=== PATIENT | male | born 1990 | race Caucasian/White ===

== ENCOUNTER 2021-05-29 09:43 | Outpatient (REF) | payer OTHER, MEDICARE, MEDICAID, SELFPAY ==
[2021-05-29 11:08] LABS: MANUAL DIFF FLAG NO
[2021-05-29 11:13] LABS: Basophils Percent Auto 0.4 % (0-2); Eosinophils Absolute Auto 0.1 X10*3/uL (0.0-0.4); Eosinophils Percent Auto 1.8 % (0-4); Hematocrit 42.5 % (42-52); Hemoglobin 14.7 g/dl (14.0-18.0); Imm Gran Abs Auto 0.02 X10*3/uL (0.00-0.03); Imm Gran Pct Auto 0.4 % (0.0-0.4); Lymphocytes Absolute Auto 1.2 X10*3/uL (1.2-4.9); Lymphocytes Percent Auto 27.2 % (20-40); Mean Corpuscular HGB Conc 34.6 g/dl (31.0-36.0); Mean Corpuscular Hemoglobin 30.4 pg (27.0-33.0); Mean Corpuscular Volume 87.8 fL (80-98); Mean Platelet Volume 12.2 fL (9.4-12.4); Monocytes Absolute Auto 0.4 X10*3/uL (0.1-1.2); Monocytes Percent Auto 8.7 % (2-11); Neutrophils Absolute Auto 2.8 X10*3/uL (2.0-8.3); Neutrophils Percent Auto 61.5 % (45-73); Platelet Count 138 X10*3/uL (160-400); Red Blood Count 4.84 X10*6/uL (4.60-5.80); Red Cell Distribution Width 12.9 % (11.0-16.0); White Blood Count 4.5 X10*3/uL (4.8-10.8)
[2021-05-29 12:12] LABS: Erythrocyte Sedimentation Rate 7 MM/HR (0-15)
[2021-06-05 12:36] LABS: Asperg fumigatus Precip Abs NEGATIVE (NEGATIVE); Micropoly faeni Abs NEGATIVE (NEGATIVE); Pigeon serum Abs NEGATIVE (NEGATIVE); Saccharo pora viridis Abs NEGATIVE (NEGATIVE); Thermo candidus Abs NEGATIVE (NEGATIVE); Thermoa vulgaris #1 NEGATIVE (NEGATIVE)
== END 2021-05-29 09:44 | disposition home or self-care (01) ==
LOC: HO.LAB 09:43
PROVIDERS: PCP Internal Medicine; Visit Provider Hospitalist
DX: J39.8 Other specified diseases of upper respiratory tract (principal); R05 Cough; R06.00 Dyspnea, unspecified; J45.909 Unspecified asthma, uncomplicated; Q24.9 Congenital malformation of heart, unspecified; R91.8 Other nonspecific abnormal finding of lung field
CPT/HCPCS: 36415; 82785; 85025; 85652; 86003; 86331; 86606; 86609

== ENCOUNTER → 2021-07-03 13:24 | Outpatient (BNVA) | payer OTHER, MEDICARE, MEDICAID, SELFPAY | PROVIDERS: PCP Internal Medicine; Visit Provider Hospitalist ==

== ENCOUNTER → 2021-11-06 14:07 | Outpatient (BNVA) | payer OTHER, MEDICARE, MEDICAID, SELFPAY | PROVIDERS: PCP Internal Medicine; Visit Provider Hospitalist ==

== ENCOUNTER 2022-01-29 08:00 | Outpatient (REF) | payer OTHER, MEDICARE, MEDICAID, SELFPAY ==
--- NOTE | ~2022-01-29 | FL_ITS ---
EXAMINATION: FL BARIUM SWALLOW CLINICAL INFORMATION: Gastroesophageal reflux disease without esophagitis. COMPARISON: None TECHNIQUE: Barium swallow examination is performed using fluoroscopic evaluation in addition to multiple fluoroscopic spot views. The patient is imaged both upright and prone and using both thick and thin sulfate along with effervescent granules. Fluoroscopy time: 1.2 minutes DAP: 9.922 Gycm2 Images: 81 FINDINGS: There is normal oral bolus control and transfer. Normal posterior tilt of the epiglottis with elevation of the hyoid. No cricopharyngeal abnormality. The esophagus was normal in course, caliber, and contour. There was normal distensibility with no fixed segment of narrowing. No focal mucosal abnormality was identified. Mild esophageal dysmotility is observed, with retention of contrast in the esophagus with the patient in the prone positioning. Contrast passed freely across the gastroesophageal junction into the stomach. There is a small sliding hiatal hernia. This extends approximately the height of 2 vertebral bodies. Moderate gastroesophageal reflux was observed. FL/FL barium swallow IMPRESSION: Moderate gastroesophageal reflux associated with a small sliding hiatal hernia. There is mild esophageal dysmotility.
== END 2022-01-29 08:01 | disposition home or self-care (01) ==
LOC: HO.XRAY 08:00
PROVIDERS: PCP Internal Medicine; Visit Provider Hospitalist
DX: K21.9 Gastro-esophageal reflux disease without esophagitis (principal)
CPT/HCPCS: 74220

== ENCOUNTER → 2022-02-18 14:03 | Outpatient (BNVA) | payer OTHER, MEDICARE, MEDICAID, SELFPAY | PROVIDERS: PCP Internal Medicine; Visit Provider Hospitalist | DX: R05.9 Cough, unspecified (principal) ==

== ENCOUNTER → 2023-03-04 12:52 | Outpatient (BNVA) | payer OTHER, MEDICARE, MEDICAID, SELFPAY | PROVIDERS: PCP Internal Medicine; Visit Provider Hospitalist | DX: J45.909 Unspecified asthma, uncomplicated (principal) ==

== ENCOUNTER 2023-11-11 15:28 | Outpatient (AMB) | payer OTHER, MEDICARE, MEDICAID, SELFPAY ==
[2023-11-11 15:30] VITALS: BP 109/64; PULSE 100; O2SAT 97; BMI 37.7
--- NOTE | 2023-11-11 15:30 | A.OFFVIS_ITS ---
Intake Vital Signs 11/11/23 15:30 Height 5 ft 11 in Weight 270 lb 1.06 oz BMI 37.7 BP 109/64 Blood Pressure Location Rt brachial Position Sitting Pulse 100 Pulse Source Doppler Pulse Oximetry (%) 97 Oxygen Delivery Method Room Air Intake Visit Reasons: Cough Intake Note: Patient is here for a routine follow up, patient stated he had an upper respir atory infection by the end of September and still has cough Allergies Sulfa (Sulfonamide Antibiotics) Allergy (Intermediate, Verified 03/04/23 13:09) Rash HPI HPI Comments History of Present Illness Details the patient is a 33-year-old gentleman with a known history of congenital heart disease status post surgery for tetralogy of fallot in addition to stent placement does who was in his usual state health until 2 months ago when he started developing worsening cough shortness of breath. patient is evaluated and treated without any significant improvement after antibiotics. Had a chest x-ray demonstrating no acute disease. In addition to that underwent pulmonary function studies which demonstrated a moderate obstruction. he was given a short-acting beta agonist. The patient however continues to have symptoms including a croupy cough which is nonproductive in nature. He did cough in the office in concerned about the of tracheomalacia the likely was precipitated by the respiratory illness. At this point with his ongoing symptoms and not responding to therapy as well as a nondiagnostic chest x-ray and very abnormal pulmonary function studies the patient needs to undergo a CT scan of the chest. I will request a CT scan of the chest with forced expiratory cuts to further address the tracheomalacia. 07/03/2021 the patient is here for a pulmonary follow-up visit. Overall the patient has been doing better on the current respiratory regimen. His cough is less congested. But, still present. We did review his blood work including allergy testing. It appears that his ragweed allergies. 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 in addition to that did have some areas pneumonitis in the left upper lung zone. The patient does have a follow-up in [place] at [facility] in the coming weeks. I did request that they take the imag es from the CT scan so that can be further addressed air. It appears that although the obstruction is significant he is aerating his lung well and therefore likely a dynamic obstruction. This obstruction is likely explaining the significant obstructive ventilatory defect that we saw on his pulmonary function studies. 11/06/2021 The patient has a telehealth visit. Overall the patient has been doing well. Breathing is overall better. Still has a cough, intermittent, non productive. Mild to moderate. He did go to [place] and reviewed his CT chest with [place] regarding the near complete obstruction of the JAVI bronchus which is due to his vascular anomaly. The family apperantly was reassured. In the mean time he did get the flutter valve. I do hope that CPT with help him clear secretions better and improve his cough. If his symptoms continue or worsen we can always consider visualizing the area with bronchoscopy. 02/18/2022 the patient is here for a pulmonary follow-up visit. Since we last spoke the patient has been doing relatively well. He did quit his job at [employer] and he got any job at a different refills to her. This new job will have less exposure to dust and climate change that usually activates is asthma. Overall he is doing well from the asthma standpoint although he has not been using his Breo daily. Part he does forget. However, on examination he does have some wheezing to therefore a did reassure that he should be using his maintenance inhaler daily. In addition to that he will benefit from adding singular. The patient did have a barium swallow because of the dysphagia symptoms in the has a small hiatal hernia which appears to be sliding and also moderate reflux. We did take time to talk about the reflux diet and modifications from that standpoint. At this point will hold off on any antacid medication. I am hopeful that he can start making some dietary changes and routine changes. the patient will follow up with his primary care doctor believe in the fall in the can decide if he should have further evaluations for the hiatal hernia. 09/13/2022 the patient is here for a pulmonary follow-up visit. Since we last spoke he ran out of his Breo and he has not been using it. He did move to a different apartment then change pharmacy so therefore he will was not getting it regularly. Ultimately in the fall he did get sick with COVID-19. He did see his primary care doctor and he was prescribed back Slo-bid. Afterwards he continue have a cough and he was treated for that. Now finally the cough is subsiding after several months. the patient did feel better on the Breo. We did talk about other alternatives to Breo. However, he feels pretty strongly he wants to stay on the same medication. Therefore I will go ahead and send the medication to the pharmacy. Patient has also using singular at nighttime. He also has has an Acapella valve that he should be using. We again went to the instructions on how to use it. 03/04/2023 the patient is here for a pulmonary follow-up visit. Overall the patient is doing well. He is using the Breo as prescribed. Has not had to use his rescue inhaler. He still has coughing events specially when he lays flat. Usually nonproductive. typically results on his own. The patient understands that he needs to monitor closely with reflux diet. He does have a small hiatal hernia and some reflux disease based on barium swallow. He continues on his PPI. He will try to maintain reflux diet. He may benefit from GI evaluation in the future. In the meantime he is doing well from a respiratory status. 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 The patient does follow up in [place] for that. There were not concerned with the CT scan findings. Will go ahead and follow-up in a year's time with pulmonary function studies. Otherwise if the patient has any worsening symptoms he should Call for an earlier evaluation. 11/11/2023 the patient is here for a pulmonary follow-up visit. He has been having increasing cough specially after having a acute illness. The patient did require a short course of antibiotics. Overall he did get better but still feels shortness of breath and just a persistent cough. Moderate severity. In addition to that has been complaining increasing dyspepsia and heartburn. The patient does have a hiatal hernia. On examination he does have some expiratory wheezing. Although minimal mainly on forced exhalation. Reasonable to escalate his respiratory therapy. Will switch him over to a HFA formulation will provide him with a spacer in order for him to better administer the medication with better distribution and hopefully improving his symptoms. In addition to that we talked that the underlying hiatal hernia reflux disease could be potentially affecting his asthma. He is already trying to follow a reflux diet and we had spoken about sleeping with the head of bed elevated previously. Will have him get a barium swallow. He may need to have further GI evaluation. [facility] Medical History (Updated 11/13/23 @ 22:39 by Kaiser Prakash MD) Hiatal hernia Airway obstruction, anatomic Congenital heart disease Cough Dyspnea Asthma Social History Patient Tobacco Use Status: Never used Tobacco Review of Systems Const Denies night sweats ENT Denies change in voice, Denies lip swelling, Denies mouth pain, Reports nasal congestion, Reports nasal discharge and Denies tongue swelling Card Denies chest pain and Denies dyspnea Resp Reports cough and Denies dyspnea GI Denies abdominal pain, Reports dyspepsia and Reports heartburn Musc Denies no additional complaints Neuro Denies Neuro-related abnormal movements Psych Denies no additional complaints Qamar/Lymph Denies easy bleeding and Denies lymphadenopathy Aller/Immun Denies lip swelling and Denies tongue swelling Physical Exam Vital Signs: Last Vital Signs Pulse 100 11/11/23 15:30 BP 109/64 11/11/23 15:30 Pulse Ox 97 11/11/23 15:30 Oxygen Delivery Method Room Air 11/11/23 15:30 BMI result Body Mass Index 37.7 Const General: alert Eyes Pupils: Equal, round and reactive pupils present Neck Neck: Yes normal visual inspection, Yes full ROM and Yes no lymphadenopathy Chest Chest palpation & inspection: normal inspection of the chest Resp Effort & Inspection: normal respiratory effort and prolonged expiratory phase Auscultation: wheezes and diminished lung sounds Cardio Rate: regular rate Rhythm: regular rhythm Heart sounds: S1 normal heart sound present and S2 normal heart sound present GI Palpation (GI): Soft to palpation and nontender Auscultation: normal bowel sounds General: Yes no CVA tenderness Back/Spine/Pelvis Back: no CVA tenderness Skin General skin exam: rashes and/or lesions noted Neuro Cranial nerves: Yes Equal, round and reactive pupils present Assessment & Plan Assessment & Plan (1) Cough: Code(s): R05 - Cough Qualifiers: Cough type: chronic Qualified Code(s): R05.3 - Chronic cough (2) Dyspnea: Code(s): R06.00 - Dyspnea, unspecified Qualifiers: Dyspnea type: dyspnea on exertion Qualified Code(s): R06.09 - Other forms of dyspnea (3) Asthma: Code(s): J45.909 - Unspecified asthma, uncomplicated Qualifiers: Asthma complication type: uncomplicated Asthma persistence: persistent Asthma severity: moderate Qualified Code(s): J45.40 - Moderate persistent asthma, uncomplicated (4) Congenital heart disease: Code(s): Q24.9 - Congenital malformation of heart, unspecified (5) Airway obstruction, anatomic: Code(s): J98.8 - Other specified respiratory disorders Plan: it appears that the right mainstem bronchus is being extrinsically cuff struck did by the pulmonary trunk in addition to the aorta (6) Hiatal hernia: Code(s): K44.9 - Diaphragmatic hernia without obstruction or gangrene Plan stop Breo 200 daily start Breztri MARK as needed reflux diet Sleep elevated barium swallow CPT with flutter valve F/U 2-3 months Orders: Orders FL barium swallow 11/11/23 K21.9 - Gastro-esophageal reflux disease without esophagitis Medications: New [id number] 160-9-4.8 mcg/actuation (Breztri Aerosphere) 2 inhalations inhalation BID 30 days 10.7 grams 11RF Refilled albuterol sulfate 90 mcg/actuation 2 inhalations inhalation Q6H 30 days PRN 8.5 grams 11RF shortness of breath or wheezing Coding Level of Care Code Est Pt Level 4 (38633) Diagnoses Chronic cough R05.3 Cough type: chronic Dyspnea on exertion R06.09 Dyspnea type: dyspnea on exertion Moderate persistent asthma without complication J45.40 Asthma complication type: uncomplicated Asthma persistence: persistent Asthma severity: moderate Congenital heart disease Q24.9 Airway obstruction, anatomic J98.8 Hiatal hernia K44.9 Time Spent (min) 19
== END 2023-11-11 16:03 | disposition home or self-care (01) ==
PROVIDERS: PCP Internal Medicine; Visit Provider Hospitalist
DX: R05.3 Chronic cough (principal); R06.09 Other forms of dyspnea; J45.40 Moderate persistent asthma, uncomplicated; Q24.9 Congenital malformation of heart, unspecified; J98.8 Other specified respiratory disorders; K44.9 Diaphragmatic hernia without obstruction or gangrene
CPT/HCPCS: 99214

== ENCOUNTER → 2023-11-11 15:28 | Outpatient (BNVA) | payer OTHER, MEDICARE, MEDICAID, SELFPAY | PROVIDERS: PCP Internal Medicine; Visit Provider Hospitalist ==

== ENCOUNTER 2024-02-16 08:44 | Outpatient (REF) | payer OTHER, MEDICARE, MEDICAID, SELFPAY ==
--- NOTE | ~2024-02-16 | FL_ITS ---
EXAMINATION: XR FLUOROSCOPY UPPER GI WITH AIR CLINICAL INFORMATION: Reflux. Asthma COMPARISON: Barium swallow 01/29/2022 TECHNIQUE: Fluoroscopic air contrast upper GI examination was performed utilizing standard techniques with thin and thick barium and effervescent granules. Numerous spot images were obtained. FINDINGS: Lateral cine images of the oropharynx and hypopharynx demonstrate normal swallow mechanism with normal epiglottic inversion and soft palate elevation. No tracheal penetration, glottic or subglottic aspiration identified. No nasopharyngeal reflux present. Hypopharyngeal structures appear normal without evidence of mass or diverticulum. There was no significant cricopharyngeal achalasia. Dual and single contrast images of the esophagus demonstrate normal caliber, contour, and mucosal pattern. No evidence of mass, or ulcerations identified. There is a Schatzki's ring present which appears to be open and not significantly obstructing or narrowing the GE junction. Esophageal peristalsis was mildly disorganized. A small to moderate size type I hiatal hernia is present. No significant gastroesophageal reflux was seen during the course of the examination and on reflux views. Dual contrast and single contrast images of the stomach demonstrated normal contour and mucosal pattern without evidence of mass, ulceration, or other abnormality. Contrast freely passed into the gastric antrum and duodenal bulb without delay. Single and air-contrast images of the duodenal bulb demonstrate no abnormality. The duodenal sweep has a normal appearance, course, and mucosal fold appearance. No malrotation. The imaged proximal jejunum has a normal fold pattern and caliber. There are small sternal wires present from remote sternotomy. FLUOROSCOPY TIME: 4 minutes 24 seconds Number of Spot Images: 11 Number of Cine: 16 DOSE AREA PRODUCT: 3602 uGy-m2 (microgray-meter squared) FL/FL barium swallow with air IMPRESSION: 1. Nonobstructing Schatzki's ring. 2. Mild esophageal dysmotility. 3. Small to moderate-sized type I hiatal hernia. 4. While no gastroesophageal reflux was seen during this examination, suspect at least moderate reflux. 5. Normal-appearing stomach and duodenum. This procedure was performed by Luis A Tolentino PA-C, and supervised by Dr. Oconnor
== END 2024-02-16 08:45 | disposition home or self-care (01) ==
LOC: HO.XRAY 08:44
PROVIDERS: PCP Internal Medicine; Visit Provider Hospitalist
DX: K21.9 Gastro-esophageal reflux disease without esophagitis (principal)
CPT/HCPCS: 74220; 74221

== ENCOUNTER → 2024-02-16 08:45 | Outpatient (BNV) | payer OTHER, MEDICARE, MEDICAID, SELFPAY | PROVIDERS: PCP Internal Medicine; Visit Provider Physician Assistant Surgical | DX: K21.9 Gastro-esophageal reflux disease without esophagitis (principal) | CPT/HCPCS: 74246 ==

== ENCOUNTER 2024-02-24 14:32 | Outpatient (AMB) | payer OTHER, MEDICARE, MEDICAID, SELFPAY ==
[2024-02-24 14:50] VITALS: PULSE 80; O2SAT 97; BMI 37.0
--- NOTE | 2024-02-24 14:50 | A.OFFVIS_ITS ---
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 patient is evaluated and treated without any significant improvement after antibiotics. Had a chest x-ray demonstrating no acute disease. In addition to that underwent pulmonary function studies which demonstrated a moderate obstruction. he was given a short-acting beta agonist. The patient however continues to have symptoms including a croupy cough which is nonproductive in nature. He did cough in the office in concerned about the of tracheomalacia the likely was precipitated by the respiratory illness. At this point with his ongoing symptoms and not responding to therapy as well as a nondiagnostic chest x-ray and very abnormal pulmonary function studies the patient needs to undergo a CT scan of the chest. I will request a CT scan of the chest with forced expiratory cuts to further address the tracheomalacia. 07/03/2021 the patient is here for a pulmonary follow-up visit. Overall the patient has been doing better on the current respiratory regimen. His cough is less congested. But, still present. We did review his blood work including allergy testing. It appears that his ragweed allergies. 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 in addition to that did have some areas pneumonitis in the left upper lung zone. The patient does have a follow-up in [place] at [facility] in the coming weeks. I did request that they take the images from the CT scan so that can be further addressed air. It appears that although the obstruction is significant he is aerating his lung well and therefore likely a dynamic obstruction. This obstruction is likely explaining the significant obstructive ventilatory defect that we saw on his pulmonary function studies. 11/06/2021 The patient has a telehealth visit. Overall the patient has been doing well. Breathing is overall better. Still has a cough, intermittent, non productive. Mild to moderate. He did go to [place] and reviewed his CT chest with [place] regarding the near complete obstruction of the JAVI bronchus which is due to his vascular anomaly. The family apperantly was reassured. In the mean time he did get the flutter valve. I do hope that CPT with help him clear secretions better and improve his cough. If his symptoms continue or worsen we can always consider visualizing the area with bronchoscopy. 02/18/2022 the patient is here for a pulmonary follow-up visit. Since we last spoke the patient has been doing relatively well. He did quit his job at [employer] and he got any job at a different refills to her. This new job will have less exposure to dust and climate change that usually activates is asthma. Overall he is doing well from the asthma standpoint although he has not been using his Breo daily. Part he does forget. However, on examination he does have some wheezing to therefore a did reassure that he should be using his maintenance inhaler daily. In addition to that he will benefit from adding singular. The patient did have a barium swallow because of the dysphagia symp toms in the has a small hiatal hernia which appears to be sliding and also moderate reflux. We did take time to talk about the reflux diet and modifications from that standpoint. At this point will hold off on any antacid medication. I am hopeful that he can start making some dietary changes and routine changes. the patient will follow up with his primary care doctor believe in the fall in the can decide if he should have further evaluations for the hiatal hernia. 09/13/2022 the patient is here for a pulmonary follow-up visit. Since we last spoke he ran out of his Breo and he has not been using it. He did move to a different apartment then change pharmacy so therefore he will was not getting it regularly. Ultimately in the fall he did get sick with COVID-19. He did see his primary care doctor and he was prescribed back Slo-bid. Afterwards he continue have a cough and he was treated for that. Now finally the cough is subsiding after several months. the patient did feel better on the Breo. We did talk about other alternatives to Breo. However, he feels pretty strongly he wants to stay on the same medication. Therefore I will go ahead and send the medication to the pharmacy. Patient has also using singular at nighttime. He also has has an Acapella valve that he should be using. We again went to the instructions on how to use it. 03/04/2023 the patient is here for a pulmonary follow-up visit. Overall the patient is doing well. He is using the Breo as prescribed. Has not had to use his rescue inhaler. He still has coughing events specially when he lays flat. Usually nonproductive. typically results on his own. The patient understands that he needs to monitor closely with reflux diet. He does have a small hiatal hernia and some reflux disease based on barium swallow. He continues on his PPI. He will try to maintain reflux diet. He may benefit from GI evaluation in the future. In the meantime he is doing well from a respiratory status. He d oes have anatomical changes in his mediastinum due to his congenital anomalies. The patient does follow up in [place] for that. There were not concerned with the CT scan findings. Will go ahead and follow-up in a year's time with pulmonary function studies. Otherwise if the patient has any worsening symptoms he should Call for an earlier evaluation. 11/11/2023 the patient is here for a pulmonary follow-up visit. He has been having increasing cough specially after having a acute illness. The patient did require a short course of antibiotics. Overall he did get better but still feels shortness of breath and just a persistent cough. Moderate severity. In addition to that has been complaining increasing dyspepsia and heartburn. The patient does have a hiatal hernia. On examination he does have some expiratory wheezing. Although minimal mainly on forced exhalation. Reasonable to escalate his respiratory therapy. Will switch him over to a HFA formulation will provide him with a spacer in order for him to better administer the medication with better distribution and hopefully improving his symptoms. In addition to that we talked that the underlying hiatal hernia reflux disease could be potentially affecting his asthma. He is already trying to follow a reflux diet and we had spoken about sleeping with the head of bed elevated previously. Will have him get a barium swallow. He may need to have further GI evaluation. 02/24/2024 the patient is here for a pulmonary follow-up visit. Overall the patient has been doing well. He is happy he has getting a promotion at work. His cough is overall stable. Continues on the Breo inhaler. The other inhaler that I prescribe, Breztri, was not covered. He is actually doing good on Breo so will just continue that for now. The patient did have a barium swallowing we did personally reviewed. His hiatal hernia now is described as [id number]-lucldfgu size which is more than before. He also has a Schatzki's ring. Is not causing significant narrowing of the esophagus) the GE junction. He also has significant reflux disease. He does have a positional bed at home that he is that needs to start using. In addition to that we talked about the reflux diet which is crucial. The patient should also start a PPI for now. I did encourage him to talk to his primary care doctor regarding seen a GI specialist. Specially with a Schatzki ring want to make sure there is no narrowing there. Does not appear to be at risk for Alvarez's at this time but if he continues have this issue and may develop in the future. The patient is also aware the reflux can worsen his asthma symptoms and cough. The patient has been doing otherwise okay from a respiratory status. Although he has not had any x-rays in some time. Therefore he will have an x-ray when able. [facility] Medical History (Updated 11/13/23 @ 22:39 by Kaiser Prakash MD) Hiatal hernia Airway obstruction, anatomic Congenital heart disease Cough Dyspnea Asthma Social History Patient Tobacco Use Status: Never used Tobacco Review of Systems Const Denies night sweats ENT Denies change in voice, Denies lip swelling, Denies mouth pain, Reports nasal congestion, Reports nasal discharge and Denies tongue swelling Card Denies chest pain and Denies dyspnea Resp Reports cough and Denies dyspnea GI Denies abdominal pain, Reports dyspepsia and Reports heartburn Musc Denies no additional complaints Neuro Denies Neuro-related abnormal movements Psych Denies no additional complaints Qamar/Lymph Denies easy bleeding and Denies lymphadenopathy Aller/Immun Denies lip swelling and Denies tongue swelling Physical Exam Vital Signs: Last Vital Signs Pulse 80 02/24/24 14:50 Pulse Ox 97 02/24/24 14:50 Oxygen Delivery Method Room Air 02/24/24 14:50 BMI result Body Mass Index 37.0 Const General: alert Eyes Pupils: Equal, round and reactive pupils present Neck Neck: Yes normal visual inspection, Yes full ROM and Yes no lymphadenopathy Chest Chest palpation & inspection: normal inspection of the chest Resp Effort & Inspection: normal respiratory effort and prolonged expiratory phase Auscultation: wheezes and diminished lung sounds Cardio Rate: regular rate Rhythm: regular rhythm Heart sounds: S1 normal heart sound present and S2 normal heart sound present GI Palpation (GI): Soft to palpation and nontender Auscultation: normal bowel sounds General: Yes no CVA tenderness Back/Spine/Pelvis Back: no CVA tenderness Skin General skin exam: rashes and/or lesions noted Neuro Cranial nerves: Yes Equal, round and reactive pupils present Results Reviewed Results Reviewed: [address] [address] Fluoroscopy Report Signed Patient: Luis A Degroot MR#: [id number] : 1990 Acct:[id number] Age/Sex: 33 / M ADM Date: 02/16/24 [facility] Attending Dr: Kaiser Prakash MD Ordering Physician: Kaiser Prakash MD Date of Service: 02/16/24 Procedure(s): FL barium swallow with air Accession Number(s): [id number] cc: Santiago Manning MD; Kaiser Prakash MD~ EXAMINATION: XR FLUOROSCOPY UPPER GI WITH AIR CLINICAL INFORMATION: Reflux. Asthma COMPARISON: Barium swallow 01/29/2022 TECHNIQUE: Fluoroscopic air contrast upper GI examination was performed utilizing standard techniques with thin and thick barium and effervescent granules. Numerous spot images were obtained. FINDINGS: Lateral cine images of the oropharynx and hypopharynx demonstrate normal swallow mechanism with normal epiglottic inversion and soft palate elevation. No tracheal penetration, glottic or subglottic aspiration identified. No nasopharyngeal reflux present. Hypopharyngeal structures appear normal without evidence of mass or diverticulum. There was no significant cricopharyngeal achalasia. Dual and single contrast images of the esophagus demonstrate normal caliber, contour, and mucosal pattern. No evidence of mass, or ulcerations identified. There is a Schatzki's ring present which appears to be open and not significantly obstructing or narrowing the GE junction. Esophageal peristalsis was mildly disorganized. A small to moderate size type I hiatal hernia is present. No significant gastroesophageal reflux was seen during the course of the examination and on reflux views. Dual contrast and single contrast images of the stomach demonstrated normal contour and mucosal pattern without evidence of mass, ulceration, or other abnormality. Contrast freely passed into the gastric antrum and duodenal bulb without delay. Single and air-contrast images of the duodenal bulb demonstrate no abnormality. The duodenal sweep has a normal appearance, course, and mucosal fold appearance. No malrotation. The imaged proximal jejunum has a normal fold pattern and caliber. There are small sternal wires present from remote sternotomy. FLUOROSCOPY TIME: 4 minutes 24 seconds Number of Spot Images: 11 Number of Cine: 16 DOSE AREA PRODUCT: 3602 uGy-m2 (microgray-meter squared) FL/FL barium swallow with air IMPRESSION: 1. Nonobstructing Schatzki's ring. 2. Mild esophageal dysmotility. 3. Small to moderate-sized type I hiatal hernia. 4. While no gastroesophageal reflux was seen during this examination, suspect at least moderate reflux. 5. Normal-appearing stomach and duodenum. This procedure was performed by Luis A Tolentino PA-C, and supervised by Dr. Oconnor Dictated By: Luis A Tolentino Signed By: <Electronically signed by Luis A Tolentino in OV> 02/17/24 1620 <Electronically signed by Avel Oconnor MD in OV> 02/17/24 1624 DD/ 0905 TD/TT: Mill Operator: Assessment & Plan Assessment & Plan (1) Cough: Code(s): R05 - Cough Category: Medical Qualifiers: Cough type: chronic Qualified Code(s): R05.3 - Chronic cough (2) Dyspnea: Code(s): R06.00 - Dyspnea, unspecified Category: Medical Qualifiers: Dyspnea type: dyspnea on exertion Qualified Code(s): R06.09 - Other forms of dyspnea (3) Asthma: Code(s): J45.909 - Unspecified asthma, uncomplicated Category: Medical Qualifiers: Asthma severity: moderate Asthma persistence: persistent Asthma complication type: uncomplicated Qualified Code(s): J45.40 - Moderate persistent asthma, uncomplicated (4) Congenital heart disease: Code(s): Q24.9 - Congenital malformation of heart, unspecified Category: Medical (5) Airway obstruction, anatomic: Code(s): J98.8 - Other specified respiratory disorders Category: Medical Plan: it appears that the right mainstem bronchus is being extrinsically cuff struck did by the pulmonary trunk in addition to the aorta (6) Hiatal hernia: Code(s): K44.9 - Diaphragmatic hernia without obstruction or gangrene Category: Medical Plan continue Breo 200 daily MARK as needed reflux diet Sleep elevated barium swallow abnormal, would benefit from a GI eval start PPI CPT with flutter valve CXR F/U 4-6 months Orders: Orders XR chest 2V 02/24/24 J45.40 - Moderate persistent asthma, uncomplicated, R05.3 - Chronic cough Medications: New fluticasone furoate-vilanterol 200-25 mcg/dose (Breo Ellipta) 1 inh inhalation DAILY 30 days 60 ea 11RF esomeprazole magnesium (Nexium) 40 mg PO DAILY 30 days 30 caps 6RF Discontinued fbiopzachi-ytwacrht-yxcerighyf 160-9-4.8 mcg/actuation (Breztri Aerosphere) Discontinued Reason: Doctor's Order 2 inhalations inhalation BID 30 days 10.7 grams 11RF Coding Level of Care Code Est Pt Level 4 (87801) Diagnoses Chronic cough R05.3 Cough type: chronic Dyspnea on exertion R06.09 Dyspnea type: dyspnea on exertion Moderate persistent asthma without complication J45.40 Asthma severity: moderate Asthma persistence: persistent Asthma complication type: uncomplicated Congenital heart disease Q24.9 Airway obstruction, anatomic J98.8 Hiatal hernia K44.9 Time Spent (min) 18
== END 2024-02-24 15:15 | disposition home or self-care (01) ==
PROVIDERS: PCP Internal Medicine; Visit Provider Hospitalist
DX: R05.3 Chronic cough (principal); R06.09 Other forms of dyspnea; J45.40 Moderate persistent asthma, uncomplicated; Q24.9 Congenital malformation of heart, unspecified; J98.8 Other specified respiratory disorders; K44.9 Diaphragmatic hernia without obstruction or gangrene
CPT/HCPCS: 99214

== ENCOUNTER → 2024-02-24 14:32 | Outpatient (BNVA) | payer OTHER, MEDICARE, MEDICAID, SELFPAY | PROVIDERS: PCP Internal Medicine; Visit Provider Hospitalist ==

== ENCOUNTER 2025-03-01 10:11 | Outpatient (REF) | payer OTHER, MEDICARE, MEDICAID, SELFPAY ==
--- NOTE | ~2025-03-01 | XR_ITS ---
EXAMINATION: XR CHEST 2 VIEWS HISTORY: R05.3 - Chronic cough COMPARISON: There are no prior studies available for comparison. FINDINGS: PA and lateral views of the chest are submitted. The lungs are expanded and clear. There is no pleural effusion, pneumothorax, or pulmonary vascular congestion. The heart is normal in size. There is a right-sided aortic arch. The patient is status post median sternotomy. The bones are intact. XR/XR chest 2V IMPRESSION: Right-sided aortic arch. The lungs are clear. Electronically signed by: Elian Tejada MD 03/01/2025 11:51 AM EDT
== END 2025-03-01 10:12 | disposition home or self-care (01) ==
LOC: HO.XRAY 10:11
PROVIDERS: PCP Internal Medicine; Visit Provider Hospitalist
DX: R05.3 Chronic cough (principal); J45.40 Moderate persistent asthma, uncomplicated
CPT/HCPCS: 71046

== ENCOUNTER 2025-03-01 10:11 | Outpatient (AMB) | payer OTHER, MEDICARE, MEDICAID, SELFPAY ==
[2025-03-01 10:17] VITALS: BP 98/68; PULSE 74; O2SAT 98; BMI 36.9
--- NOTE | 2025-03-01 10:17 | A.OFFVIS_ITS ---
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 patient is evaluated and treated without any significant improvement after antibiotics. Had a chest x- ray demonstrating no acute disease. In addition to that underwent pulmonary function studies which demonstrated a moderate obstruction. he was given a short-acting beta agonist. The patient however continues to have symptoms including a croupy cough which is nonproductive in nature. He did cough in the office in concerned about the of tracheomalacia the likely was precipitated by the respiratory illness. At this point with his ongoing symptoms and not responding to therapy as well as a nondiagnostic chest x-ray and very abnormal pulmonary function studies the patient needs to undergo a CT scan of the chest. I will request a CT scan of the chest with forced expiratory cuts to further address the tracheomalacia. 07/03/2021 the patient is here for a pulmonary follow-up visit. Overall the patient has been doing better on the current respiratory regimen. His cough is less congested. But, still present. We did review his blood work including allergy testing. It appears that his ragweed allergies. 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 in addition to that did have some areas pneumonitis in the left upper lung zone. The patient does have a follow-up in [place] at [facility] in the coming weeks. I did request that they take the images from the CT scan so that can be further addressed air. It appears that although the obstruction is significant he is aerating his lung well and therefore likely a dynamic obstruction. This obstruction is likely explaining the significant obstructive ventilatory defect that we saw on his pulmonary function studies. 11/06/2021 The patient has a telehealth visit. Overall the patient has been doing well. Breathing is overall better. Still has a cough, intermittent, non productive. Mild to moderate. He did go to [facility] and reviewed [facility] chest with [facility] regarding the near complete obstruction of the JAVI bronchus which is due to his vascular anomaly. The family apperantly was reassured. In the mean time he did get the flutter valve. I do hope that CPT with help him clear secretions better and improve his cough. If his symptoms continue or worsen we can always consider visualizing the area with bronchoscopy. 02/18/2022 the patient is here for a pulmonary follow-up visit. Since we last spoke the patient has been doing relatively well. He did quit his job at [employer] and he got any job at a different refills to her. This new job will have less exposure to dust and climate change that usually activates is asthma. Overall he is doing well from the asthma standpoint although he has not been using his Breo daily. Part he does forget. However, on examination he does have some wheezing to therefore a did reassure that he should be using his maintenance inhaler daily. In addition to that he will benefit from adding singular. The patient did have a barium swallow because of the dysphagia symptoms in the has a small hiatal hernia which appears to be sliding and also moderate reflux. We did take time to talk about the reflux diet and modifications from that standpoint. At this point will hold off on any antacid medication. I am hopeful that he can start making some dietary changes and routine changes. the patient will follow up with his primary care doctor believe in the fall in the can decide if he should have further evaluations for the hiatal hernia. 09/13/2022 the patient is here for a pulmonary follow-up visit. Since we last spoke he ran out of his Breo and he has not been using it. He did move to a different apartment then change pharmacy so therefore he will was not getting it regularly. Ultimately in the fall he did get sick with COVID-19. He did see his primary care doctor and he was prescribed back Slo-bid. Afterwards he continue have a cough and he was treated for that. Now finally the cough is subsiding after several months. the patient did feel better on the Breo. We did talk about other alternatives to Breo. However, he feels pretty strongly he wants to stay on the same medication. Therefore I will go ahead and send the medication to the pharmacy. Patient has also using singular at nighttime. He also has has an Acapella valve that he should be using. We again went to the instructions on how to use it. 03/04/2023 the patient is here for a pulmonary follow-up visit. Overall the patient is doing well. He is using the Breo as prescribed. Has not had to use his rescue inhaler. He still has coughing events specially when he lays flat. Usually nonproductive. typically results on his own. The patient understands that he needs to monitor closely with reflux diet. He does have a small hiatal hernia and some reflux disease based on barium swallow. He continues on his PPI. He will try to maintain reflux diet. He may benefit from GI evaluation in the future. In the meantime he is doing well from a respiratory status. 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 The patient does follow up in [place] for that. There were not concerned with the CT scan findings. Will go ahead and follow-up in a year's time with pulmonary function studies. Otherwise if the patient has any worsening symptoms he should Call for an earlier evaluation. 11/11/2023 the patient is here for a pulmonary follow-up visit. He has been having increasing cough specially after having a acute illness. The patient did require a short course of antibiotics. Overall he did get better but still feels shortness of breath and just a persistent cough. Moderate severity. In addition to that has been complaining increasing dyspepsia and heartburn. The patient does have a hiatal hernia. On examination he does have some expiratory wheezing. Although minimal mainly on forced exhalation. Reasonable to escalate his respiratory therapy. Will switch him over to a HFA formulation will provide him with a spacer in order for him to better administer the medication with better distribution and hopefully improving his symptoms. In addition to that we talked that the underlying hiatal hernia reflux disease could be potentially affecting his asthma. He is already trying to follow a reflux diet and we had spoken about sleeping with the head of bed elevated previously. Will have him get a barium swallow. He may need to have further GI evaluation. 02/24/2024 the patient is here for a pulmonary follow-up visit. Overall the patient has been doing well. He is happy he has getting a promotion at work. His cough is overall stable. Continues on the Breo inhaler. The other inhaler that I prescribe, Breztri, was not covered. He is actually doing good on Breo so will just continue that for now. The patient did have a barium swallowing we did personally reviewed. His hiatal hernia now is described as [id number] size which is more than before. He also has a Schatzki's ring. Is not causing significant narrowing of the esophagus) the GE junction. He also has significant reflux disease. He does have a positional bed at home that he is that needs to start using. In addition to that we talked about the reflux diet which is crucial. The patient should also start a PPI for now. I did encourage him to talk to his primary care doctor regarding seen a GI specialist. Specially with a Schatzki ring want to make sure there is no narrowing there. Does not appear to be at risk for Alvarez's at this time but if he continues have this issue and may develop in the future. The patient is also aware the reflux can worsen his asthma symptoms and cough. The patient has been doing otherwise okay from a respiratory status. Although he has not had any x-rays in some time. Therefore he will have an x-ray when able. 03/01/2025 the patient overall has been doing well. He did follow-up with GI and was placed on a PPI. His cough seems to be better. Again we emphasized the importance the reflux diet. Also weight management. He already lost about 10 lb which is reassuring. The patient continues uses respiratory medications as prescribed. He has not had to use any albuterol or any prednisone which is reassuring. He has multiple jobs now staying visit. No significant exposure to any fumes or toxins. 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 Will have him get an x-ray today. 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 Therefore no additional imaging studies warranted. Will follow-up in a year's time. The patient has any issues prior to that he will call for an earlier assessment. [facility] Medical History (Updated 03/01/25 @ 10:48 by Kaiser Prakash MD) Swelling of lower extremity Varicose veins of bilateral lower extremities with pain Lower extremity edema Hiatal hernia Airway obstruction, anatomic Congenital heart disease Cough Dyspnea Asthma Social History Patient Tobacco Use Status: Never used Tobacco Review of Systems Const Denies night sweats ENT Denies change in voice, Denies lip swelling, Denies mouth pain, Reports nasal congestion, Reports nasal discharge and Denies tongue swelling Card Denies chest pain and Denies dyspnea Resp Reports cough and Denies dyspnea GI Denies abdominal pain, Reports dyspepsia and Reports heartburn Musc Denies no additional complaints Neuro Denies Neuro-related abnormal movements Psych Denies no additional complaints Qamar/Lymph Denies easy bleeding and Denies lymphadenopathy Aller/Immun Denies lip swelling and Denies tongue swelling Physical Exam Vital Signs: Last Vital Signs Pulse 74 03/01/25 10:17 BP 98/68 03/01/25 10:17 Pulse Ox 98 03/01/25 10:17 Oxygen Delivery Method Room Air 03/01/25 10:17 BMI result Body Mass Index 36.9 Const General: alert Eyes Pupils: Equal, round and reactive pupils present Neck Neck: Yes normal visual inspection, Yes full ROM and Yes no lymphadenopathy Chest Chest palpation & inspection: normal inspection of the chest Resp Effort & Inspection: normal respiratory effort and prolonged expiratory phase Auscultation: wheezes and diminished lung sounds Cardio Rate: regular rate Rhythm: regular rhythm Heart sounds: S1 normal heart sound present and S2 normal heart sound present GI Palpation (GI): Soft to palpation and nontender Auscultation: normal bowel sounds General: Yes no CVA tenderness Back/Spine/Pelvis Back: no CVA tenderness Skin General skin exam: no rashes or lesions noted Neuro Cranial nerves: Yes Equal, round and reactive pupils present Extrem General: No clubbing, No cyanosis and Yes edema Assessment & Plan Assessment & Plan (1) Cough: Code(s): R05 - Cough Category: Medical Qualifiers: Cough type: chronic Qualified Code(s): R05.3 - Chronic cough (2) Dyspnea: Code(s): R06.00 - Dyspnea, unspecified Category: Medical Qualifiers: Dyspnea type: dyspnea on exertion Qualified Code(s): R06.09 - Other forms of dyspnea (3) Asthma: Code(s): J45.909 - Unspecified asthma, uncomplicated Category: Medical Qualifiers: Asthma complication type: uncomplicated Asthma persistence: persistent Asthma severity: moderate Qualified Code(s): J45.40 - Moderate persistent asthma, uncomplicated (4) Congenital heart disease: Code(s): Q24.9 - Congenital malformation of heart, unspecified Category: Medical (5) Airway obstruction, anatomic: Code(s): J98.8 - Other specified respiratory disorders Category: Medical Plan: it appears that the right mainstem bronchus is being extrinsically cuff struck did by the pulmonary trunk in addition to the aorta (6) Hiatal hernia: Code(s): K44.9 - Diaphragmatic hernia without obstruction or gangrene Category: Medical (7) Swelling of lower extremity: Code(s): M79.89 - Other specified soft tissue disorders Category: Medical (8) Varicose veins of bilateral lower extremities with pain: Code(s): I83.813 - Varicose veins of bilateral lower extremities with pain Category: Medical Plan continue Breo 200 daily MARK as needed reflux diet Sleep elevated PPI CPT with flutter valve CXR 2024 with well expanded lungs, righr sided Aortic arch compression stockings F/U 12 months Orders: Orders XR chest 2V 03/01/25 J45.40 - Moderate persistent asthma, uncomplicated, R05.3 - Chronic cough Medications: New compress.stocking,knee,reg,med 15-20 cmH2O 2 ea 0RF I83.813 - Varicose veins of bilateral lower extremities with pain, M79.89 - Other specified soft tissue disorders, R60.0 - Localized edema Coding Level of Care Code Est Pt Level 4 (38716) Diagnoses Chronic cough R05.3 Cough type: chronic Dyspnea on exertion R06.09 Dyspnea type: dyspnea on exertion Moderate persistent asthma without complication J45.40 Asthma complication type: uncomplicated Asthma persistence: persistent Asthma severity: moderate Congenital heart disease Q24.9 Airway obstruction, anatomic J98.8 Hiatal hernia K44.9 Swelling of lower extremity M79.89 Varicose veins of bilateral lower extremities with pain I83.813 Time Spent (min) 17
--- OUTSIDE RECORDS SUMMARY | 2025-03-01 10:49 | XMS_ITS | Clinical Summary ---
Author Organization [address] Address [address] [place] [address] Phone Care Team Providers Care Er Rn Name Role Phone Santiago Manning MD Primary Care Provider [phone] Allergies Active Allergy Reactions Criticality Noted Date Comments Sulfa (Sulfonamide Antibiotics) 11/04 Medications OXcarbazepine (TRILEPTAL) 600 mg tablet Take 1 tablet (600 mg total) by mouth. 03/15/2024 Active pantoprazole (PROTONIX) 40 mg EC tablet Take 1 tablet (40 mg total) by mouth. 06/20/2024 Active topiramate (TOPAMAX) 100 mg tablet Take 1 tablet (100 mg total) by mouth at bedtime. 03/15/2024 Active albuterol HFA (PROAIR HFA ; PROVENTIL HFA ; VENTOLIN HFA) 90 mcg/actuation inhaler Inhale 2 puffs by mouth 3 times daily. 11/11/2023 Active buPROPion XL (WELLBUTRIN XL) 300 mg 24 hr tablet Take 1 tablet (300 mg total) by mouth 1 (one) time each day. 03/15/2024 Active fluticasone furoate-vilanter oL (Breo Ellipta) 200-25 mcg/dose inhaler Inhale 1 puff by mouth daily. 04/20/2024 Active Active Problems Problem Noted Date Diagnosed Date Anxiety Aortic arch anomaly Asthma Depression Fallot's tetralogy Jbld-alzkra-nxnzjw syndrome Encounters Date Type Department Care Team Description 11/30/2024 1:00 PM EST Office Visit Gastroenterology - [address] [place] [id number] Tonio Moreno MD Gastroesophageal reflux disease without esophagitis (Primary Dx) from Last 3 Months Surgical History Surgery Date Site/Laterality Comments TETRALOGY OF FALLOT REPAIR GASTROSCOPY 02/01/2024 - 03/02/2024 HH Medical History Medical History Date Comments Asthma Anxiety Depression Fallot's tetralogy Tdxq-nfcpnz-tkalok syndrome Aortic arch anomaly Family History Medical History Relation Name Comments JOHN disease Mother Relation Name Status Comments Mother Social History Tobacco Use Types Packs/Day Years Used Date Smoking Tobacco: Never Smokeless Tobacco: Never Alcohol Use Standard Drinks/Week Comments Yes 0 (1 standard drink = 0.6 oz pur e alcohol) Sex and Gender Information Value Date Recorded Sex Assigned at Not on file Legal Sex Male 1:26 PM EST Gender Identity Not on file Sexual Orientation Not on file Obstetrics History Last Filed Vital Signs Vital Sign Reading Time Taken Comments Blood Pressure - - Pulse - - Temperature - - Respiratory Rate - - Oxygen Saturation - - Inhaled Oxygen Concentration - - Weight 123 kg (272 lb) 11/30/2024 12:52 PM EST Height 180.3 cm (5' 11 ) 11/30/2024 12:52 PM EST Body Mass Index 37.94 11/30/2024 12:52 PM EST Plan of Treatment Health Maintenance Due Date Last Done Comments DTaP,Tdap,and Td Vaccines (1 - Tdap) 2007 Hepatitis B Vaccines (1 of 3 - 19+ 3-dose series) 2007 Pneumococcal Vaccine: Pediatrics (0 to 5 Years) and At-Risk Patients (6 to 64 Years) (1 of 2 - PCV) 2007 COVID-19 Vaccine ( - 2023-2 5 season) 2024 01/14/2021, 12/24/2020 Cholesterol Screening (Lipid Panel) 07/10/2024 Depression Screening 07/10/2024 HIV Screening 07/10/2024 Hepatitis C Screening 07/10/2024 Social Influencers of Health Screening 07/10/2024 Influenza Vaccine (Season Ended) 2025 HIB Vaccines Aged Out No longer eligi ble based on patient's age to complete this topic HPV Vaccines Aged Out No longer eligi ble based on patient's age to complete this topic Hepatitis A Vaccines Aged Out No long er eligible based on patient's age to complete this topic IPV Vaccines Aged Out No longer eligi ble based on patient's age to complete this topic MMR Vaccines Aged Out No longer eligi ble based on patient's age to complete this topic Meningococcal ACWY Vaccine Aged Out N o longer eligible based on patient's age to complete this topic Meningococcal B Vaccine Aged Out No l onger eligible based on patient's age to complete this topic RSV Immunization Patients Under 20 months Aged Out No longer eligible b ased on patient's age to complete this topic Varicella Vaccines Aged Out No longer eligible based on patient's age to complete this topic Insurance [employer] [place] - [place] [employer] [place] - [place] MEDICARE Care Teams Er Rn Relationship Specialty Start Date End Date Santiago Manning MD [address] [place] [phone] PCP - General Internal Medicine 08/17/24
== END 2025-03-01 10:52 | disposition home or self-care (01) ==
LOC: HO.HPS 10:11
PROVIDERS: PCP Internal Medicine; Visit Provider Hospitalist
DX: R05.3 Chronic cough (principal); R06.09 Other forms of dyspnea; J45.40 Moderate persistent asthma, uncomplicated; Q24.9 Congenital malformation of heart, unspecified; J98.8 Other specified respiratory disorders; K44.9 Diaphragmatic hernia without obstruction or gangrene; M79.89 Other specified soft tissue disorders; I83.813 Varicose veins of bilateral lower extremities with pain
CPT/HCPCS: 99214

== ENCOUNTER → 2025-03-01 11:04 | Outpatient (BNV) | payer OTHER, MEDICARE, MEDICAID, SELFPAY | PROVIDERS: PCP Internal Medicine; Visit Provider Radiology Diagnostic Radiology | DX: R05.3 Chronic cough (principal) | CPT/HCPCS: 71046 ==